=== PATIENT | male | born 1965 | race African-American/Black ===

== ENCOUNTER 2019-05-19 13:28 | Inpatient (IN) | payer OTHER ==
[2019-05-19] MEDS ORDERED: ONDANSETRON 4 MG INJ IV ×3 (13:31→17:30)
[2019-05-19] MEDS ORDERED: morphine 4 MG/ML VIAL IV (13:31)
[2019-05-19 14:05] LABS: ADD MAN DIFF? NO
[2019-05-19 14:08] LABS: BASOPHILS % 0.6 % (0.0-2.0); EOSINOPHILS # 0.2 10^3/ul (0.0-0.5); EOSINOPHILS % 2.6 % (0.0-7.0); HEMATOCRIT 32.9 % (42.0-52.0); HEMOGLOBIN 11.3 g/dl (14.0-18.0); LYMPHOCYTES # 1.3 10^3/ul (0.8-2.9); MEAN CORPUSCULAR HEMOGLOBIN 28.7 pg (29.0-33.0); MEAN CORPUSCULAR HGB CONC 34.3 g/dl (32.0-37.0); MEAN CORPUSCULAR VOLUME 83.5 fl (82.0-101.0); MONOCYTE # 0.8 10^3/ul (0.3-0.9); MONOCYTES % 12.3 % (0.0-11.0); NEUTROPHILS % 63.2 % (39.0-77.0); PLATELET COUNT 177 10^3/UL (140-415); RED BLOOD COUNT 3.94 10^6/ul (4.70-6.10); RED CELL DISTRIBUTION WIDTH 15.6 % (11.5-14.5)
[2019-05-19 14:08] LABS: WHITE BLOOD COUNT 6.3 10^3/ul (4.8-10.8)
[2019-05-19 14:26] LABS: ANION GAP 11 (5-13); BLOOD UREA NITROGEN 72 mg/dl (7-20); CARBON DIOXIDE 21 mmol/L (21-31); CHLORIDE 115 mmol/L (97-110); CREATININE 9.64 mg/dl (0.61-1.24); Estimated GFR 7 mL/min (>60); GLUCOSE 87 mg/dl (70-220); SODIUM 147 mmol/L (135-144)
[2019-05-19 14:27] LABS: POTASSIUM 5.2 mmol/L (3.5-5.1)
[2019-05-19 14:37] LABS: TROPONIN-I 0.035 ng/ml (0.000-0.120)
[2019-05-19] MEDS: morphine 4 MG/ML VIAL IV (15:04)
[2019-05-19] MEDS: ONDANSETRON 4 MG INJ IV (15:04)
[2019-05-19] MEDS ORDERED: ACETAMINOPHEN 325 MG TAB PO ×2 (15:30→17:30)
[2019-05-19] MEDS ORDERED: HYDROCODONE/APAP (10/325) TAB PO (17:00)
[2019-05-19] MEDS ORDERED: HYDROCODONE/APAP (5/325) TAB PO (17:30)
[2019-05-19] MEDS ORDERED: NACL 0.9% 3 ML SYG IV (17:30)
[2019-05-19] MEDS: SEVELAMER CARBONATE 0.8 GM PKT PO (18:00)
[2019-05-19] MEDS: FUROSEMIDE 40 MG TAB PO (18:00)
[2019-05-19] MEDS: OXYCODONE/ACETAMINOPHEN (10/325) TAB PO (18:13)
[2019-05-19] MEDS ORDERED: SODIUM CHLORIDE 0.9% 1L BAG IV (20:00)
[2019-05-19 20:01] LABS: CREATINE KINASE 167 IU/L (23-200)
[2019-05-19 20:14] LABS: CK INDEX 0.7; TROPONIN-I 0.029 ng/ml (0.000-0.120)
[2019-05-19] MEDS: LIDOCAINE 1% (MPF) 30 ML INJ INJ (20:49)
[2019-05-19] MEDS: LEVETIRACETAM 750 MG TAB PO (20:51)
[2019-05-19] MEDS: ALBUMIN HUMAN 25% 100 ML IV (20:51)
[2019-05-19] MEDS: HEPARIN 5,000 UNIT/1 ML VIAL SC (20:55)
[2019-05-19 21:25] LABS: HEPATITIS B SURFACE ANTIGEN NEGATIVE (NEGATIVE)
[2019-05-19 21:42] LABS: HEPATITIS C VIRAL ANTIBODY NEGATIVE (NEGATIVE)
[2019-05-19 21:43] LABS: HEPATITIS B SURFACE ANTIBODY NEGATIVE (NEGATIVE)
[2019-05-20 02:17] LABS: ADD MAN DIFF? NO
[2019-05-20 02:19] LABS: WHITE BLOOD COUNT 6.6 10^3/ul (4.8-10.8)
[2019-05-20 02:19] LABS: BASOPHILS % 0.6 % (0.0-2.0); EOSINOPHILS # 0.2 10^3/ul (0.0-0.5); EOSINOPHILS % 3.6 % (0.0-7.0); HEMATOCRIT 33.5 % (42.0-52.0); HEMOGLOBIN 11.5 g/dl (14.0-18.0); LYMPHOCYTES # 1.7 10^3/ul (0.8-2.9); LYMPHOCYTES % 25.8 % (15.0-51.0); MEAN CORPUSCULAR HEMOGLOBIN 28.4 pg (29.0-33.0); MEAN CORPUSCULAR HGB CONC 34.3 g/dl (32.0-37.0); MEAN CORPUSCULAR VOLUME 82.7 fl (82.0-101.0); MEAN PLATELET VOLUME 9.6 fl (7.4-10.4); MONOCYTE # 0.8 10^3/ul (0.3-0.9); MONOCYTES % 11.4 % (0.0-11.0); NEUTROPHIL # 3.8 10^3/ul (1.6-7.5); NEUTROPHILS % 58.1 % (39.0-77.0); PLATELET COUNT 189 10^3/UL (140-415); RED BLOOD COUNT 4.05 10^6/ul (4.70-6.10); RED CELL DISTRIBUTION WIDTH 15.5 % (11.5-14.5)
[2019-05-20] MEDS: ZOLPIDEM 5 MG TAB PO (02:22)
[2019-05-20 02:38] LABS: CREATINE KINASE 152 IU/L (23-200)
[2019-05-20 02:39] LABS: ANION GAP 14 (5-13); BLOOD UREA NITROGEN 50 mg/dl (7-20); CALCIUM 8.9 mg/dl (8.4-10.2); CARBON DIOXIDE 22 mmol/L (21-31); CHLORIDE 108 mmol/L (97-110); CHOL/HDL RATIO 3.9 RATIO; CHOLESTEROL 130 mg/dl (100-200); CREATININE 7.49 mg/dl (0.61-1.24); Estimated GFR 9 mL/min (>60); GLUCOSE 96 mg/dl (70-220); HDL CHOLESTEROL 33 mg/dl (28-71); LDL CHOLESTEROL,CALCULATED 60 mg/dl; MAGNESIUM 2.2 mg/dl (1.7-2.5); PHOSPHORUS 6.4 mg/dl (2.5-4.9); POTASSIUM 4.4 mmol/L (3.5-5.1); SODIUM 144 mmol/L (135-144); TRIGLYCERIDES 184 mg/dl (0-149)
[2019-05-20] MEDS: morphine 4 MG/ML VIAL IV (02:44)
[2019-05-20 02:50] LABS: CK INDEX 0.7; CK-MB 1.03 ng/ml (0.0-2.4); TROPONIN-I 0.031 ng/ml (0.000-0.120)
[2019-05-20 03:11] LABS: FREE THYROXINE INDEX (Calc) 4.14 ug/ml (0.65-3.89); T3 UPTAKE 36.3 % (23.5-40.5)
[2019-05-20 03:13] LABS: T4 (THYROXINE) 11.4 ug/dl (5.5-11.0)
[2019-05-20] MEDS: OXYCODONE/ACETAMINOPHEN (10/325) TAB PO (05:11)
[2019-05-20] MEDS: FUROSEMIDE 40 MG TAB PO ×2 (05:11→17:33)
[2019-05-20] MEDS: LEVOTHYROXINE 175 MCG TAB PO (06:39)
[2019-05-20] MEDS: ASPIRIN 81 MG TAB PO (08:26)
[2019-05-20] MEDS: SEVELAMER CARBONATE 0.8 GM PKT PO ×3 (08:26→17:32)
[2019-05-20] MEDS: LEVETIRACETAM 750 MG TAB PO (08:26)
[2019-05-20] MEDS: ISOSORBIDE MONONITRATE(SR)60 MG TAB PO (08:27)
[2019-05-20] MEDS: AMIODARONE 200 MG TAB PO (08:27)
[2019-05-20] MEDS: HEPARIN 5,000 UNIT/1 ML VIAL SC ×2 (08:30→21:00)
[2019-05-20] MEDS: morphine 2 MG INJ IV ×2 (11:35→17:33)
[2019-05-20] MEDS: LIDOCAINE 1% (MPF) 30 ML INJ INJ (20:14)
[2019-05-20] MEDS: ALBUMIN HUMAN 25% 100 ML IV (21:18)
[2019-05-21] MEDS: LEVETIRACETAM 750 MG TAB PO ×3 (00:24→20:30)
[2019-05-21] MEDS: morphine 2 MG INJ IV ×5 (00:25→20:33)
[2019-05-21] MEDS: ALPRAZOLAM 0.25 MG TAB PO (02:09)
[2019-05-21] MEDS: FUROSEMIDE 40 MG TAB PO ×2 (05:59→18:00)
[2019-05-21] MEDS: LEVOTHYROXINE 175 MCG TAB PO (06:00)
[2019-05-21] MEDS: SEVELAMER CARBONATE 0.8 GM PKT PO ×3 (07:55→17:55)
[2019-05-21] MEDS: ASPIRIN 81 MG TAB PO (08:25)
[2019-05-21] MEDS: ISOSORBIDE MONONITRATE(SR)60 MG TAB PO (08:26)
[2019-05-21] MEDS: AMIODARONE 200 MG TAB PO (08:27)
[2019-05-21] MEDS: HEPARIN 5,000 UNIT/1 ML VIAL SC ×2 (08:27→20:31)
[2019-05-21] MEDS: DOCUSATE SODIUM 100 MG CAP PO (09:30)
[2019-05-22] MEDS: morphine 2 MG INJ IV ×3 (03:02→14:14)
[2019-05-22] MEDS: LEVOTHYROXINE 175 MCG TAB PO (06:11)
[2019-05-22] MEDS: FUROSEMIDE 40 MG TAB PO ×2 (06:12→17:42)
[2019-05-22] MEDS: SEVELAMER CARBONATE 0.8 GM PKT PO ×3 (07:55→17:42)
[2019-05-22] MEDS: ASPIRIN 81 MG TAB PO (08:17)
[2019-05-22] MEDS: LEVETIRACETAM 750 MG TAB PO (08:17)
[2019-05-22] MEDS: AMIODARONE 200 MG TAB PO (08:23)
[2019-05-22] MEDS: HEPARIN 5,000 UNIT/1 ML VIAL SC (08:24)
[2019-05-22] MEDS: ISOSORBIDE MONONITRATE(SR)60 MG TAB PO (08:24)
[2019-05-22] MEDS: LIDOCAINE 1% (MDV) 20 ML INJ INJ (10:34)
== END 2019-05-22 18:30 | disposition home or self-care (01) | DRG 291 ==
LOC: E/R 13:28 → TEL 15:13
PROC: 5A1D70Z Performance of Urinary Filtration, Intermittent, Less than 6 Hours Per Day (ICD-10-PCS; principal; 2019-05-19)
DX: I50.23 Acute on chronic systolic (congestive) heart failure (principal); N18.6 End stage renal disease; J96.01 Acute respiratory failure with hypoxia; I13.2 Hypertensive heart and chronic kidney disease with heart failure and with stage 5 chronic kidney disease, or end stage renal disease; Z68.42 Body mass index [BMI] 45.0-49.9, adult; I42.6 Alcoholic cardiomyopathy; E87.0 Hyperosmolality and hypernatremia; Z99.2 Dependence on renal dialysis; E66.01 Morbid (severe) obesity due to excess calories; Z95.0 Presence of cardiac pacemaker; Z95.5 Presence of coronary angioplasty implant and graft; I16.0 Hypertensive urgency; I25.2 Old myocardial infarction; Z86.73 Personal history of transient ischemic attack (TIA), and cerebral infarction without residual deficits; Z87.891 Personal history of nicotine dependence; Z91.15 Patient's noncompliance with renal dialysis; R07.2 Precordial pain
CPT/HCPCS: 36415; 71045; 80048; 80061; 82550; 82553; 83036; 83735; 84100; 84436; 84443; 84479; 84484; 85025; 86706; 86803; 87340; 90935; 93005; 93306; 96374; 96375; 99285-25

== ENCOUNTER 2019-06-16 15:25 | Inpatient (IN) | payer MEDICARE, OTHER ==
[2019-06-16] MEDS: NITROGLYCERIN 2% 1 GM OINT PKT TD (17:14)
[2019-06-16 17:24] LABS: ADD MAN DIFF? NO
[2019-06-16 17:29] LABS: BASOPHIL # 0.1 10^3/ul (0.0-0.1); BASOPHILS % 0.7 % (0.0-2.0); EOSINOPHILS # 0.2 10^3/ul (0.0-0.5); EOSINOPHILS % 2.1 % (0.0-7.0); HEMATOCRIT 30.1 % (42.0-52.0); LYMPHOCYTES # 1.4 10^3/ul (0.8-2.9); LYMPHOCYTES % 19.4 % (15.0-51.0); MEAN CORPUSCULAR HEMOGLOBIN 28.4 pg (29.0-33.0); MEAN CORPUSCULAR HGB CONC 33.2 g/dl (32.0-37.0); MEAN CORPUSCULAR VOLUME 85.5 fl (82.0-101.0); MEAN PLATELET VOLUME 10.8 fl (7.4-10.4); MONOCYTE # 1.1 10^3/ul (0.3-0.9); MONOCYTES % 15.4 % (0.0-11.0); NEUTROPHIL # 4.4 10^3/ul (1.6-7.5); PLATELET COUNT 173 10^3/UL (140-415); RED BLOOD COUNT 3.52 10^6/ul (4.70-6.10); RED CELL DISTRIBUTION WIDTH 15.1 % (11.5-14.5)
[2019-06-16 18:25] LABS: ALANINE AMINOTRANSFERASE 29 IU/L (13-69); ALBUMIN 3.4 g/dl (3.3-4.9); ALBUMIN/GLOBULIN RATIO 1.03; ALKALINE PHOSPHATASE 101 IU/L (42-121); ANION GAP 10 (5-13); ASPARTATE AMINO TRANSFERASE 36 IU/L (15-46); BILIRUBIN,INDIRECT 0.3 mg/dl (0-1.1); BILIRUBIN,TOTAL 0.3 mg/dl (0.2-1.3); BLOOD UREA NITROGEN 38 mg/dl (7-20); CALCIUM 8.1 mg/dl (8.4-10.2); CARBON DIOXIDE 26 mmol/L (21-31); CHLORIDE 108 mmol/L (97-110); CREATININE 6.05 mg/dl (0.61-1.24); Estimated GFR 12 mL/min (>60); GLUCOSE 86 mg/dl (70-220); POTASSIUM 3.5 mmol/L (3.5-5.1); SODIUM 144 mmol/L (135-144); TOTAL PROTEIN 6.7 g/dl (6.1-8.1)
[2019-06-16 18:36] LABS: TROPONIN-I 0.025 ng/ml (0.000-0.120)
[2019-06-16] MEDS ORDERED: TRANEXAMIC ACID 1GM/100ML(PMX) 100 ML IV (19:00)
[2019-06-16] MEDS ORDERED: ONDANSETRON 4 MG INJ IV ×2 (19:30→20:00)
[2019-06-16] MEDS ORDERED: HYDROCODONE/APAP (5/325) TAB PO (19:30)
[2019-06-16] MEDS ORDERED: NACL 0.9% 3 ML SYG IV (19:30)
[2019-06-16] MEDS ORDERED: ACETAMINOPHEN 325 MG TAB PO ×2 (19:30→20:00)
[2019-06-16] MEDS ORDERED: NITROGLYCERIN (SL) 0.4 MG TAB SL (19:30)
[2019-06-16] MEDS: morphine 2 MG INJ IV (21:40)
[2019-06-16] MEDS: ASPIRIN 81 MG TAB PO (21:40)
[2019-06-16] MEDS: ATORVASTATIN 80 MG TAB PO (21:40)
[2019-06-16 23:44] LABS: CREATINE KINASE 88 IU/L (23-200)
[2019-06-16 23:57] LABS: CK INDEX 0.3; CK-MB < 0.22 ng/ml (0.0-2.4); TROPONIN-I 0.033 ng/ml (0.000-0.120)
[2019-06-17] MEDS: morphine 2 MG INJ IV ×5 (02:31→20:07)
[2019-06-17] MEDS: DIPHENHYDRAMINE 50 MG INJ IV ×2 (03:03→23:22)
[2019-06-17] MEDS: oxyCODONE 15 MG TAB PO (06:07)
[2019-06-17] MEDS: LEVOTHYROXINE 175 MCG TAB PO (06:07)
[2019-06-17] MEDS: FUROSEMIDE 40 MG TAB PO ×2 (06:08→17:24)
[2019-06-17] MEDS: DOCUSATE SODIUM 100 MG CAP PO (06:48)
[2019-06-17 07:24] LABS: ADD MAN DIFF? NO
[2019-06-17 07:31] LABS: BASOPHILS % 0.6 % (0.0-2.0); EOSINOPHILS # 0.2 10^3/ul (0.0-0.5); EOSINOPHILS % 3.1 % (0.0-7.0); HEMATOCRIT 32.5 % (42.0-52.0); HEMOGLOBIN 10.6 g/dl (14.0-18.0); LYMPHOCYTES # 1.5 10^3/ul (0.8-2.9); LYMPHOCYTES % 21.7 % (15.0-51.0); MEAN CORPUSCULAR HEMOGLOBIN 27.7 pg (29.0-33.0); MEAN CORPUSCULAR HGB CONC 32.6 g/dl (32.0-37.0); MEAN CORPUSCULAR VOLUME 84.9 fl (82.0-101.0); MEAN PLATELET VOLUME 10.4 fl (7.4-10.4); MONOCYTES % 14.6 % (0.0-11.0); NEUTROPHIL # 4.2 10^3/ul (1.6-7.5); NEUTROPHILS % 59.7 % (39.0-77.0); PLATELET COUNT 186 10^3/UL (140-415); RED BLOOD COUNT 3.83 10^6/ul (4.70-6.10); RED CELL DISTRIBUTION WIDTH 14.9 % (11.5-14.5)
[2019-06-17] MEDS: SEVELAMER CARBONATE 0.8 GM PKT PO (07:55)
[2019-06-17 07:56] LABS: CREATINE KINASE 93 IU/L (23-200)
[2019-06-17 07:59] LABS: ALANINE AMINOTRANSFERASE 25 IU/L (13-69); ALBUMIN 3.8 g/dl (3.3-4.9); ALBUMIN/GLOBULIN RATIO 1.18; ALKALINE PHOSPHATASE 114 IU/L (42-121); ANION GAP 11 (5-13); ASPARTATE AMINO TRANSFERASE 23 IU/L (15-46); BILIRUBIN,INDIRECT 0.3 mg/dl (0-1.1); BILIRUBIN,TOTAL 0.3 mg/dl (0.2-1.3); BLOOD UREA NITROGEN 46 mg/dl (7-20); CALCIUM 8.7 mg/dl (8.4-10.2); CARBON DIOXIDE 26 mmol/L (21-31); CHLORIDE 107 mmol/L (97-110); Estimated GFR 10 mL/min (>60); GLUCOSE 92 mg/dl (70-220); POTASSIUM 4.3 mmol/L (3.5-5.1); SODIUM 144 mmol/L (135-144)
[2019-06-17 08:06] LABS: B-TYPE NATRIURETIC PEPTIDE 2440 PG/ML (0-125)
[2019-06-17 08:09] LABS: CK INDEX 0.4; CK-MB 0.34 ng/ml (0.0-2.4); TROPONIN-I 0.037 ng/ml (0.000-0.120)
[2019-06-17] MEDS: LEVETIRACETAM 750 MG TAB PO ×2 (08:23→20:06)
[2019-06-17] MEDS: ISOSORBIDE MONONITRATE(SR)60 MG TAB PO (08:24)
[2019-06-17] MEDS: AMIODARONE 200 MG TAB PO (08:24)
[2019-06-17] MEDS: ASPIRIN 81 MG TAB PO ×2 (08:30)
[2019-06-17] MEDS: SEVELAMER CARBONATE 800 MG TABLET PO ×2 (11:53→17:21)
[2019-06-17] MEDS: SENNA TAB PO ×2 (11:53→20:06)
[2019-06-17] MEDS: ISOSORBIDE MONONITRATE(SR)30 MG TAB PO (17:24)
[2019-06-17] MEDS ORDERED: ALBUMIN HUMAN 25% 100 ML IV (17:30)
[2019-06-17] MEDS ORDERED: SODIUM CHLORIDE 0.9% 1L BAG IV (17:30)
[2019-06-17] MEDS: ATORVASTATIN 80 MG TAB PO (20:06)
[2019-06-17] MEDS ORDERED: ALPRAZOLAM 0.25 MG TAB PO (23:30)
[2019-06-18] MEDS: morphine 2 MG INJ IV ×3 (03:03→10:33)
[2019-06-18] MEDS: FUROSEMIDE 40 MG TAB PO (07:04)
[2019-06-18] MEDS: LEVOTHYROXINE 175 MCG TAB PO (07:04)
[2019-06-18] MEDS: ISOSORBIDE MONONITRATE(SR)30 MG TAB PO (08:59)
[2019-06-18] MEDS: SEVELAMER CARBONATE 800 MG TABLET PO (08:59)
[2019-06-18] MEDS: AMIODARONE 200 MG TAB PO (09:00)
[2019-06-18] MEDS: ASPIRIN 81 MG TAB PO (09:00)
[2019-06-18] MEDS: SENNA TAB PO (09:00)
[2019-06-18] MEDS: LEVETIRACETAM 750 MG TAB PO (09:00)
[2019-06-18] MEDS ORDERED: ISOSORBIDE MONONITRATE(SR)60 MG TAB PO (09:00)
== END 2019-06-18 11:03 | disposition home or self-care (01) | DRG 313 ==
LOC: TEL 19:34 → E/R 15:25 → TEL 06-17 00:53
PROVIDERS: Internal Medicine
DX: R07.89 Other chest pain (principal); N18.6 End stage renal disease; I13.2 Hypertensive heart and chronic kidney disease with heart failure and with stage 5 chronic kidney disease, or end stage renal disease; Z68.42 Body mass index [BMI] 45.0-49.9, adult; I69.954 Hemiplegia and hemiparesis following unspecified cerebrovascular disease affecting left non-dominant side; I50.32 Chronic diastolic (congestive) heart failure; I42.6 Alcoholic cardiomyopathy; G40.89 Other seizures; E11.22 Type 2 diabetes mellitus with diabetic chronic kidney disease; Z99.2 Dependence on renal dialysis; E66.01 Morbid (severe) obesity due to excess calories; Z95.810 Presence of automatic (implantable) cardiac defibrillator; I48.91 Unspecified atrial fibrillation; E03.9 Hypothyroidism, unspecified; E78.5 Hyperlipidemia, unspecified; I16.0 Hypertensive urgency; Z87.891 Personal history of nicotine dependence; G89.29 Other chronic pain; Z76.5 Malingerer [conscious simulation]; F10.20 Alcohol dependence, uncomplicated
CPT/HCPCS: 36415; 71045; 80053; 82550; 82553; 82962; 83880; 84484; 85025; 87081; 93005; 99285-25